=== PATIENT | female | born 2000 | race American Indian/Alaskan Native ===

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

== ENCOUNTER 2020-05-20 12:10 | Emergency (ER) | payer SELFPAY ==
[2020-05-20 12:40] VITALS: BP 131/68
[2020-05-20] MEDS ORDERED: IBUPROFEN 800 MG TAB PO ONE (13:23)
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
== END 2020-05-20 14:46 | disposition home or self-care (01) ==
LOC: ED 12:10
DX: S20.312A Abrasion of left front wall of thorax, initial encounter (principal); F17.200 Nicotine dependence, unspecified, uncomplicated; Z79.899 Other long term (current) drug therapy; V49.49XA Driver injured in collision with other motor vehicles in traffic accident, initial encounter; Y93.89 Activity, other specified; Y92.488 Other paved roadways as the place of occurrence of the external cause; Y99.8 Other external cause status
CPT/HCPCS: 99282